=== PATIENT | female | born 1995 | race Caucasian/White ===

== ENCOUNTER 2017-03-11 23:29 | Emergency (ER) | payer MEDICAID ==
[~2017-03-11] VITALS: Ht 162.6 cm; Wt 49.3 kg
[~2017-03-11 23:29] MED LIST: no meds
[2017-03-12 00:39] LABS: ASPARTATE AMINO TRANSFERASE 23 U/L (15-37); BLOOD UREA NITROGEN 12 mg/dL (7-18)
[2017-03-12] MEDS ORDERED: POTASSIUM CHLORIDE 20 MEQ TAB.ER.PRT ONE (01:46)
[2017-03-12] MEDS ORDERED: POTASSIUM CHLORIDE 20 MEQ TAB.ER.PRT PO ONE (02:00)
[2017-03-12 02:11] VITALS: BP 136/79
== END 2017-03-12 02:19 | disposition home or self-care (01) ==
LOC: ED 23:59
DX: O21.1 Hyperemesis gravidarum with metabolic disturbance (principal); Z3A.08 8 weeks gestation of pregnancy; Z90.49 Acquired absence of other specified parts of digestive tract
CPT/HCPCS: 36415; 76801; 80053; 81003; 83690; 84702; 85025

== ENCOUNTER 2018-09-08 22:09 | Emergency (ER) | payer MEDICAID ==
[~2018-09-08] VITALS: Ht 162.6 cm; Wt 60.0 kg
[2018-09-08 22:20] VITALS: BP 120/80
== END 2018-09-08 23:58 | disposition home or self-care (01) ==
LOC: ED 23:52
DX: S93.492A Sprain of other ligament of left ankle, initial encounter (principal); X58.XXXA Exposure to other specified factors, initial encounter; Y93.89 Activity, other specified; Y92.89 Other specified places as the place of occurrence of the external cause; Y99.8 Other external cause status
CPT/HCPCS: 99284

== ENCOUNTER 2019-06-15 21:10 | Emergency (ER) | payer MEDICAID ==
[~2019-06-15] VITALS: Ht 162.6 cm; Wt 51.3 kg
[2019-06-15 21:12] VITALS: BP 133/91
[2019-06-15] MEDS ORDERED: KETOROLAC 30 MG/1 ML ONE (21:28)
[2019-06-15] MEDS ORDERED: HYDROcodone/APAP 5/325 TABLET ONE (21:28)
[2019-06-15] MEDS ORDERED: KETOROLAC 30 MG/1 ML IM ONE (21:30)
[2019-06-15] MEDS ORDERED: HYDROcodone/APAP 5/325 TABLET PO ONE (21:30)
== END 2019-06-15 21:47 | disposition home or self-care (01) ==
LOC: ED 21:37
DX: K02.9 Dental caries, unspecified (principal); Z90.49 Acquired absence of other specified parts of digestive tract
CPT/HCPCS: 96372; 99283; J1885

== ENCOUNTER 2020-03-23 18:09 | Emergency (ER) | payer MEDICAID ==
[~2020-03-23] VITALS: Ht 162.6 cm; Wt 53.0 kg
--- NOTE | 2020-03-23 18:36 | NUR ---
PT STATES SHE HAS BEEN FEELING WEAK, WITH DIZZINESS AND DIFFICULTY BREATHING TODAY. PT WITH COUGH X4 DAYS, DENIES FEVER. PT WITH N/V X3 DAYS PER HER REPORT. PT TO BP, CONT PULSE OX. AWAIT ERMD FOR EVAL
[2020-03-23] MEDS ORDERED: ONDANSETRON 2MG/ML, 2ML ONE (19:18)
[2020-03-23] MEDS ORDERED: FAMOTIDINE 20 MG/2 ML ONE (19:18)
[2020-03-23] MEDS ORDERED: FAMOTIDINE 20 MG/2 ML IVPush ONE (19:30)
[2020-03-23] MEDS ORDERED: ONDANSETRON 2MG/ML, 2ML IVPush ONE (19:30)
[2020-03-23] MEDS ORDERED: SODIUM CHLORIDE 0.9% 1,000ML IVBOLUS ONE (19:30)
[2020-03-23] MEDS ORDERED: SODIUM CHLORIDE FLUSH 10ML SYR IVF ONE (19:30)
--- NOTE | 2020-03-23 19:40 | NUR ---
1ST CONTACT C PT. BACK FROM XRAY. AMBULATORY TO RESTROOM, SAMPLE OBTAINED & SENT. PIV ESTB, LABS DRAWN & SENT. RXS PER MAR. TOLERATED WELL. DENIES ANY NEEDS. CALL LIGHT INREACH. WILL CTM.
[2020-03-23 19:53] LABS: BASOPHILS # (AUTO) 0.04 x10^3/uL (0-0.1); BASOPHILS % (AUTO) 1 % (0-1); EOSINOPHILS # (AUTO) 0.14 x10^3/uL (0-0.4); EOSINOPHILS % (AUTO) 2 % (1-7); LYMPHOCYTES # (AUTO) 1.87 x10^3/uL (1-3.4); LYMPHOCYTES % (AUTO) 23 % (22-44); MD NO; MEAN CORPUSCULAR HEMOGLOBIN 30.3 pg (27.0-34.8); MEAN CORPUSCULAR HGB CONC 32.7 g/dL (32.4-35.8); MEAN CORPUSCULAR VOLUME 92.6 fL (80-100); MEAN PLATELET VOLUME 8.4 fL (7.4-10.4); MONOCYTES # (AUTO) 0.65 x10^3/uL (0.2-0.8); MONOCYTES % (AUTO) 8 % (2-9); NEUTROPHILS # (AUTO) 5.37 x10^3/uL (1.8-6.8); NEUTROPHILS % (AUTO) 67 % (42-75); PLATELET COUNT 373 x10^3/uL (130-400); RED BLOOD COUNT 5.54 x10^6/uL (3.82-5.3)
[2020-03-23 19:57] LABS: ALANINE AMINOTRANSFERASE 25 U/L (12-78); ALBUMIN 4.5 g/dL (3.4-5.0); ANION GAP 8 mmol/L (5-15); CALCIUM 9.9 mg/dL (8.5-10.1); CHLORIDE 96 mmol/L (98-107); CREATININE 0.81 mg/dL (0.55-1.02)
[2020-03-23 20:02] LABS: ALKALINE PHOSPHATASE 186 U/L (45-117); BILIRUBIN,TOTAL 0.8 mg/dL (0.2-1.0); TOTAL PROTEIN 9.9 g/dL (6.4-8.2)
[2020-03-23 20:21] LABS: CULTURE INDICATED? YES; MICROSCOPIC INDICATED
--- NOTE | 2020-03-23 20:54 | NUR ---
PT SLEEPING. RR EVEN NON LABORED. TOLERTING WATER. NSB NEARLY COMPLETE.
[2020-03-23 21:04] VITALS: BP 130/84
== END 2020-03-23 21:15 | disposition home or self-care (01) ==
LOC: ED 20:45
DX: R11.2 Nausea with vomiting, unspecified (principal); E86.0 Dehydration; R10.84 Generalized abdominal pain; R42 Dizziness and giddiness; R50.9 Fever, unspecified; R07.89 Other chest pain; R94.31 Abnormal electrocardiogram [ECG] [EKG]; Z90.49 Acquired absence of other specified parts of digestive tract; F17.200 Nicotine dependence, unspecified, uncomplicated
CPT/HCPCS: 36415; 74021; 80053; 81001; 83690; 84703; 85025; 87086; 93005; 96361; 96374; 96375; 99285; J2405; J3490; J7030

== ENCOUNTER 2020-05-26 15:47 | Emergency (ER) | payer MEDICAID ==
[~2020-05-26] VITALS: Ht 162.6 cm; Wt 59.2 kg
[2020-05-26 16:07] VITALS: BP 94/52
--- NOTE | 2020-05-26 16:25 | NUR ---
PT ALREADY SPOKE WITH POLICE. PER PT, NO REPORT FILED.
[2020-05-26] MEDS ORDERED: ACETAMINOPHEN 500 MG TABLET PO ONE (17:00)
[2020-05-26] MEDS ORDERED: ACETAMINOPHEN 500 MG TABLET ONE (17:09)
--- NOTE | 2020-05-26 17:56 | NUR ---
ASHLEIGH RN: PER BROTHER IN ROOM PT "SHE GOT MAD SO SHE LEFT". PRIOR TO RECIEVED DISCHARGE PAPERWORK.
== END 2020-05-26 19:35 | disposition home or self-care (01) ==
LOC: ED 17:52
DX: S06.0X0A Concussion without loss of consciousness, initial encounter (principal); S80.211A Abrasion, right knee, initial encounter; S40.211A Abrasion of right shoulder, initial encounter; Y04.8XXA Assault by other bodily force, initial encounter; Y93.89 Activity, other specified; Y92.830 Public park as the place of occurrence of the external cause; Y99.8 Other external cause status
CPT/HCPCS: 70450; 99284

== ENCOUNTER 2020-06-06 10:30 | Emergency (ER) | payer MEDICAID ==
[~2020-06-06] VITALS: Ht 160 cm; Wt 57.4 kg
--- NOTE | 2020-06-06 11:31 | NUR ---
PT SAID SHE HAD TO GO TO [employer] HER CHILD "I NEED TO GO NOW, JUST CALL WITH THE RESULTS"
[2020-06-06 11:33] VITALS: BP 127/54
== END 2020-06-06 11:35 | disposition home or self-care (01) ==
LOC: ED 11:20
DX: S96.912A Strain of unspecified muscle and tendon at ankle and foot level, left foot, initial encounter (principal); M79.89 Other specified soft tissue disorders; Z90.49 Acquired absence of other specified parts of digestive tract; W01.0XXA Fall on same level from slipping, tripping and stumbling without subsequent striking against object, initial encounter; Y93.89 Activity, other specified; Y92.098 Other place in other non-institutional residence as the place of occurrence of the external cause; Y99.8 Other external cause status
CPT/HCPCS: 99283

== ENCOUNTER 2021-04-11 01:07 | Emergency (ER) | payer MEDICAID ==
[~2021-04-11] VITALS: Ht 162.6 cm; Wt 49.6 kg
[2021-04-11 01:15] VITALS: BP 131/84
--- NOTE | 2021-04-11 01:44 | NUR ---
furnace clerk: pt stating "i just dont know if i have the patience to stay and wait here to be seen". rn explained that we recommend waiting to see a provider as she came in due to feeling she has an emergency. Pt states "okay, i guess we will see"
--- NOTE | 2021-04-11 02:47 | NUR ---
NIL X 2
--- NOTE | 2021-04-11 02:56 | NUR ---
NIL X 3
== END 2021-04-11 02:58 | disposition left against medical advice (07) ==
LOC: ED 02:45
DX: H66.90 Otitis media, unspecified, unspecified ear (principal); Z53.21 Procedure and treatment not carried out due to patient leaving prior to being seen by health care provider

== ENCOUNTER 2021-04-24 15:11 | Emergency (ER) | payer MEDICAID ==
[~2021-04-24] VITALS: Ht 162.6 cm; Wt 58.2 kg
[2021-04-24 15:29] VITALS: BP 136/71
--- NOTE | 2021-04-24 16:18 | NUR ---
ABAD BOYKIN AT BS NOW.
[2021-04-24] MEDS ORDERED: OFLOXACIN EAR DROPS 0.3%, 5ML OTIC ONE (16:30)
--- NOTE | 2021-04-24 17:55 | NUR ---
ABX EAR DROPS WERE INSTILLED WITH EAR WICK BY ER LUCRETIA, PT INSTRUCTED ON CARE. REST OF BOTTLE PROVIDED TO PT TO TAKE HOME. D/C INSTRUCTIONS, MEDS & F/U APPT RV'WD WITH PT, SHE VERBALIZES UNDERSTANDING. RX GIVEN X2. INSTRUCTED TO RETURN TO ED FOR WORSENING SYMPTOMS OR IF NOT IMPROVING. PT AMBULATED OUT OF ED WITHOUT DIFFICULTY.
== END 2021-04-24 18:03 | disposition home or self-care (01) ==
LOC: ED 15:56
DX: H65.01 Acute serous otitis media, right ear (principal); Z90.49 Acquired absence of other specified parts of digestive tract
CPT/HCPCS: 99283

== ENCOUNTER 2021-05-24 18:09 | Emergency (ER) | payer MEDICAID ==
[~2021-05-24] VITALS: Ht 162.6 cm; Wt 60.5 kg
--- NOTE | 2021-05-24 22:14 | NUR ---
pt reports that she was recently hospitalized and has been feeling unwell [id number]. pt c/o chest pain, nausea, vomitting, diarrhea, fatigue, and stating that "i want to be hospitalized". pt states she has her tubes tied and recently tested negative for and covid. pt placed on spo2/bp/ecg monitoring at this time. nad. provided socks and warm blankets per request Patient is resting comfortably in bed. Bed in lowest, rails engaged, call light on lap. WCTM.
[2021-05-24] MEDS ORDERED: ONDANSETRON ODT 4 MG ONE (22:23)
[2021-05-24] MEDS ORDERED: ONDANSETRON ODT 4 MG PO ONE (22:30)
[2021-05-24 22:50] LABS: MICROSCOPIC NOT IND
[2021-05-24 23:05] LABS: MEAN CORPUSCULAR HEMOGLOBIN 30.4 pg (27.0-34.8); MEAN CORPUSCULAR HGB CONC 33.3 g/dL (32.4-35.8); MEAN PLATELET VOLUME 9.1 fL (7.4-10.4); PLATELET COUNT 241 x10^3/uL (130-400); RED BLOOD COUNT 4.02 x10^6/uL (3.82-5.3); RED CELL DISTRIBUTION WIDTH 13.6 % (9.6-15.2)
[2021-05-24 23:13] LABS: ANION GAP 2 mmol/L (5-15); CALCIUM 8.2 mg/dL (8.5-10.1); CHLORIDE 107 mmol/L (98-107); CREATININE 0.54 mg/dL (0.55-1.02)
[2021-05-24 23:14] LABS: ALANINE AMINOTRANSFERASE 40 U/L (12-78); ALBUMIN 3.3 g/dL (3.4-5.0)
[2021-05-24 23:17] VITALS: BP 93/52
--- NOTE | 2021-05-24 23:17 | NUR ---
Patient is resting comfortably in bed. Bed in lowest, rails engaged, call light on lap. Vital Signs within normal limits. WCTM.
[2021-05-24 23:18] LABS: ALKALINE PHOSPHATASE 64 U/L (45-117); BILIRUBIN,TOTAL 0.3 mg/dL (0.2-1.0); TOTAL PROTEIN 6.8 g/dL (6.4-8.2); TROPONIN I < 0.015 ng/mL (0.000-0.045)
--- NOTE | 2021-05-24 23:30 | NUR ---
Patient given discharge instructions and they have confirmed that they understand the instructions. Patient ambulatory with steady gait. NAD, all questions answered appropriately, denies additional needs at this time. No personal belongings left in room after discharge.
[2021-05-24 23:34] LABS: <RBC MORPHOLOGY> NORMAL; EOS#(MANUAL) 0.26 x10^3/uL (0.0-0.4); EOS% (MANUAL) 4 % (1-7); LYMPH#(MANUAL) 3.52 x10^3/uL (1-3.4); LYMPHS% (MANUAL) 55 % (22-44); MONOS#(MANUAL) 0.45 x10^3/uL (0.3-2.7); MONOS% (MANUAL) 7 % (2-9); SEG#(MANUAL) 2.18 x10^3/uL (1.8-6.8); SEGS% (MANUAL) 34 % (42-75)
[2021-05-24 23:35] LABS: <PLATELET ESTIMATE> ADEQUATE; LARGE PLATELETS 1+
== END 2021-05-24 23:50 | disposition home or self-care (01) ==
LOC: ED 22:58
DX: R07.89 Other chest pain (principal); R53.1 Weakness; R06.02 Shortness of breath; R11.2 Nausea with vomiting, unspecified; F17.210 Nicotine dependence, cigarettes, uncomplicated; Z90.49 Acquired absence of other specified parts of digestive tract
CPT/HCPCS: 36415; 71045; 80053; 81003; 83690; 84484; 84703; 85025; 93005; 99285; 99406; Q0162